=== PATIENT | male | born 1965 | race Caucasian/White ===

== ENCOUNTER 2023-05-09 13:10 | Emergency (ER) | payer OTHER ==
[~2023-05-09] VITALS: Ht 180.3 cm; Wt 102.1 kg
[2023-05-09] MEDS ORDERED: BETAMETHASONE D60 ML (13:31)
[2023-05-09] MEDS ORDERED: BENADRYL ALLERG25 MG PO (15:44)
[2023-05-09] MEDS ORDERED: MEDROLPACK PO (15:44)
[2023-05-09] MEDS ORDERED: DUI500 PO (15:44)
== END 2023-05-09 15:57 | disposition home or self-care (01) ==
LOC: ER 13:10
PROVIDERS: General Practice
DX: R21 Rash and other nonspecific skin eruption (principal); Z91.030 Bee allergy status